=== PATIENT | female | born 1960 | race Caucasian/White ===

== ENCOUNTER 2018-03-14 18:23 | Emergency (ER) | END 2018-03-14 20:59 | disposition home or self-care (01) ==

== ENCOUNTER 2018-09-16 01:19 | Emergency (ER) | payer OTHER ==
[~2018-09-16] VITALS: Wt 76.6 kg
[~2018-09-16 01:19] MED LIST: IBUP-1561 PO; LORA-441 PO
[2018-09-16] MEDS ORDERED: KETOROLAC 15 MG INJ IM STA (05:09)
[2018-09-16] MEDS ORDERED: ACET-141 PO (07:00)
[2018-09-16] MEDS ORDERED: IBUP-1561 PO (07:00)
--- NOTE | 2018-09-16 07:03 | ERD ---
ER Documentation Chief Complaint Chief Complaint pain right arm/wrist/hand x 1 day. denies trauma ROS All systems reviewed and are negative except as per history of present illness. Medications Home Meds Active Scripts Acetaminophen* (Acetaminophen*) 500 MG Extra Strength Tablet, 500 MG PO Q4H PRN for PAIN AND OR ELEVATED TEMP, #30 TAB Prov:RODRIGO MATTA 09/16/18 Ibuprofen* (Motrin*) 400 Mg Tab, 400 MG PO Q6H PRN for PAIN AND OR ELEVATED TEMP, #30 TAB Prov:RODRIGO MATTA 09/16/18 Lorazepam* (Ativan*) 0.5 Mg Tablet, 0.5 MG PO QHS PRN for ANXIETY, #10 TAB Prov:MIGUELITO HARTMANN MD 03/14/18 Ibuprofen* (Motrin*) 400 Mg Tab, 400 MG PO Q8 for 5 Days, #15 TAB Prov:MIGUELITO HARTMANN MD 03/14/18 Allergies Allergies: Coded Allergies: No Known Allergy (Unverified , 09/16/18) PMhx/Soc Medical and Surgical Hx: pt denies Medical Hx, pt denies Surgical Hx Hx Alcohol Use: No Hx Substance Use: No Hx Tobacco Use: No Smoking Status: Never smoker Physical Exam Vitals Vital Signs Date Temp Pulse Resp B/P (MAP) Pulse Ox O2 O2 Flow FiO2 Time Delivery Rate 09/16/18 99.4 90 18 167/83 96 01:25 (111) Physical Exam Const: No acute distress Head: Atraumatic Eyes: Normal Conjunctiva ENT: Normal External Ears, Nose and Mouth. Neck: Full range of motion. No meningismus. Resp: Clear to auscultation bilaterally Cardio: Regular rate and rhythm, no murmurs Abd: Soft, non tender, non distended. Normal bowel sounds Skin: No petechiae or rashes Back: No midline or flank tenderness Ext: No cyanosis, or edema Neur: Awake and alert Psych: Normal Mood and Affect Results 24 hrs Current Medications Medications Dose Sig/Corin Start Time Status Last (Trade) Ordered Route PRN Stop Time Admin Dose Reason Admin Ketorolac 15 mg ONCE STAT 09/16/18 DC 09/16/18 Tromethamine IM 05:09 09/16/18 05:17 (Toradol) 05:10 Departure Diagnosis: Primary Impression: Wrist pain Laterality: right Qualified Codes: M25.531 - Pain in right wrist Condition: Fair Patient Instructions: Wrist Sprain Additional Instructions: Llame al doctor MAANA y joe surendra ERVIN PARA DENTRO DE 1-2 ZAPATA.Dgale a la secretaria que nosotros le instruimos hacer esta ervin.Avise o llame si walsh condicin se empeora antes de la ervin. Regresa aqui si peor o no mejor. RODRIGO MATTA DO September 16, 2018 07:03
[2018-09-16 07:10] VITALS: BP 137/72; PULSE 76; RESP 18
== END 2018-09-16 07:11 | disposition home or self-care (01) ==
LOC: FTE 01:19
DX: M25.531 Pain in right wrist (principal)
CPT/HCPCS: 73110; 96372; J1885; Z7502